=== PATIENT | female | born 1990 | race African-American/Black ===

== ENCOUNTER 2023-11-03 12:49 | Emergency (ER) | payer OTHER ==
[~2023-11-03] VITALS: Ht 165.1 cm; Wt 75.1 kg
[2023-11-03] MEDS ORDERED: RIZA10TA58 PO (13:09)
[2023-11-03 13:47] LABS: HEMATOCRIT 43.2 % (36.0-47.0); HEMOGLOBIN 14.8 g/dl (12.0-15.5); MEAN CORPUSCULAR HEMOGLOBIN 27.7 pg (27.0-33.0); MEAN CORPUSCULAR HGB CONC 34.3 g/dl (32.0-36.5); MEAN CORPUSCULAR VOLUME 80.9 fl (80.0-96.0); PLATELET COUNT, AUTOMATED 223 10^3/uL (150-450); RED BLOOD COUNT 5.34 10^6/uL (4.00-5.40); WHITE BLOOD COUNT 7.6 10^3/uL (4.0-10.0)
[2023-11-03 14:13] LABS: CK-MB VALUE MASS < 1.0 NG/ML (<3.6)
[2023-11-03 14:15] LABS: BLOOD UREA NITROGEN 9 MG/DL (9-23); CALCIUM LEVEL 9.7 MG/DL (8.5-10.1); CARBON DIOXIDE LEVEL 27 MMOL/L (20-31); CHLORIDE LEVEL 107 MMOL/L (98-107); CPK CREATINE PHOSPHOKINASE 109 U/L (34-145); GLOMERULAR FILTRATION RATE > 60.0 (>60); GLUCOSE, FASTING 88 MG/DL (60-100); MAGNESIUM LEVEL 1.9 MG/DL (1.8-2.4); MB/CK RELATIVE INDEX 0.91 (< OR =4); POTASSIUM SERUM 4.2 MMOL/L (3.5-5.1); SODIUM LEVEL 139 MMOL/L (136-145)
[2023-11-03 14:17] LABS: ATYPICAL LYMPH 6 % (0-5); LYMPHOCYTES 32 % (16-44); MONOCYTES 3 % (0-5); NEUTROPHILS 59 % (28-66); PLATELET ESTIMATE NORMAL (NORMAL); THYROID STIMULATING HORMONE 0.727 uIU/ML (0.55-4.78)
[2023-11-03 14:20] LABS: HCG, SERUM QUALITATIVE NEGATIVE (NEGATIVE)
[2023-11-03] MEDS ORDERED: ISOVUE-370 76% 100ML VIAL As Ordered ONE (16:08)
[2023-11-03 19:03] VITALS: BP 108/61; TEMP 97.5; O2SAT 98
== END 2023-11-03 19:07 | disposition home or self-care (01) ==
LOC: M ED 12:49
DX: R55 Syncope and collapse (principal); R59.0 Localized enlarged lymph nodes; R94.31 Abnormal electrocardiogram [ECG] [EKG]; G43.909 Migraine, unspecified, not intractable, without status migrainosus; F10.10 Alcohol abuse, uncomplicated; Z79.899 Other long term (current) drug therapy
CPT/HCPCS: 36415; 71045; 71275; 80048; 82550; 82553; 83735; 84443; 84484; 84703; 85025; 85379; 93005; 93041; 99284; Q9967

== ENCOUNTER → 2024-01-27 | Outpatient (CLI) | payer OTHER ==
[~2024-01-27] MED LIST: ISOVUE-370 76% 100ML VIAL As Ordered ONE; NORE0.353 PO; RIZA10TA58 PO
== END ==
LOC: M RAD 15:36
PROVIDERS: ATTEND Specialist
DX: I89.0 Lymphedema, not elsewhere classified (principal)